=== PATIENT | female | born 1990 | race Caucasian/White ===

== ENCOUNTER 2018-01-13 07:35 | Day surgery (SDC) | payer BC ==
[~2018-01-13] VITALS: Ht 149.9 cm; Wt 49.0 kg
[2018-01-13] MEDS: LACTATED RINGERS 1,000 ML IV SCH ×2 (08:20→12:06)
[2018-01-13 08:26] LABS: UCG SCREEN POSITIVE
[2018-01-13 08:27] LABS: CLARITY URINE CLOUDY (CLEAR); COLOR URINE YELLOW (YELLOW); KETONES URINE NEGATIVE (NEGATIVE); LEUKOCYTE ESTERASE URINE NEGATIVE (NEGATIVE); NITRITE URINE NEGATIVE (NEGATIVE); OCCULT BLOOD URINE NEGATIVE (NEGATIVE); PH URINE 7.5 (4.5-8.0); PROTEIN URINE NEGATIVE (NEGATIVE); SPECIFIC GRAVITY URINE 1.021 (1.005-1.030); UROBILINOGEN URINE 0.2 E.U./dL (0.2-1.0)
[2018-01-13 08:57] LABS: BASOPHILS % 0.3 % (0.0-2.0); EOSINOPHILS % 0.7 % (0.0-5.0); HEMATOCRIT. 37.9 % (36.0-48.0); HEMOGLOBIN. 12.7 g/dL (12.0-16.0); MEAN CORPUSCULAR HEMOGLOBIN 29.9 pg (28.0-32.0); MEAN CORPUSCULAR VOLUME 89.4 fL (81.0-99.0); MEAN PLATELET VOLUME 8.7 fl (7.4-10.4); MONOCYTES % 6.5 % (2.0-8.0); NEUTROPHILS % 66.5 % (40.0-76.0); PLATELET 234 x1000/uL (130-400); RED BLOOD CELL COUNT 4.24 mill/uL (4.2-5.4); RED CELL DISTRIBUTION WIDTH 13.1 % (11.6-14.6)
[2018-01-13] MEDS ORDERED: FENTANYL CITRATE/PF 50MCG/ML 2ML VIAL ONE (10:44)
[2018-01-13] MEDS ORDERED: MIDAZOLAM HCL 2 MG/2 ML VIAL ONE (10:44)
[2018-01-13] MEDS ORDERED: PROPOFOL 200MG/20ML VIAL IV ONE (10:44)
[2018-01-13] MEDS ORDERED: OXYTOCIN 10 UNITS/ML 1ML ONE (10:52)
[2018-01-13] MEDS ORDERED: KETOROLAC 30MG/ML VIAL ONE (10:58)
[2018-01-13] MEDS ORDERED: DEXAMETHASONE 4MG/ML 1ML VIAL ONE (10:58)
[2018-01-13] MEDS ORDERED: METOCLOPRAMIDE HCL 10MG/2ML VIAL ONE (10:58)
[2018-01-13] MEDS ORDERED: ONDANSETRON HCL 4MG/2ML VIAL ONE (10:58)
== END 2018-01-13 12:50 | disposition home or self-care (01) ==
LOC: OR 07:35
PROVIDERS: ATTEND Obstetrics & Gynecology Obstetrics
DX: O02.1 Missed abortion (principal); O23.591 Infection of other part of genital tract in pregnancy, first trimester; N71.1 Chronic inflammatory disease of uterus
CPT/HCPCS: 36415; 59820; 81003; 81025; 85025; 86850; 86900; 86901; 88305; J1100; J1885; J2250; J2405; J2765; J3010; J7120; J2704

== ENCOUNTER 2018-09-25 22:32 | Emergency (ER) | payer BC, OTHER ==
[~2018-09-25] VITALS: Ht 149.9 cm; Wt 54.7 kg
[2018-09-26] MEDS ORDERED: ACETAMINOPHEN WITH CODEINE 300/30MG TABLET PO ONE
[2018-09-26 00:45] VITALS: BP 118/78
== END 2018-09-26 00:47 | disposition home or self-care (01) ==
LOC: ER 22:32
DX: H66.92 Otitis media, unspecified, left ear (principal); Z91.018 Allergy to other foods
CPT/HCPCS: 99283